=== PATIENT | female | born 1955 | race Caucasian/White ===

== ENCOUNTER 2023-05-26 15:27 | Inpatient (IN) ==
[2023-05-26] MEDS ORDERED: IOPAMIDOL 100 ML BOTTLE IV ONE (15:28)
[2023-05-26] MEDS: ASPIRIN 81 MG TAB.CHEW CHEWED ONE (16:07)
[2023-05-26 16:16] LABS: Basophils # (Auto) 0.03 K/mcL (0.00-0.30); Basophils % (Auto) 0.2 % (0.0-2.0); Eosinophils # (Auto) 0.02 K/mcL (0.00-0.70); Eosinophils % (Auto) 0.1 % (0.0-7.0); Hematocrit 39.6 % (34.1-44.9); Hemoglobin 13.1 g/dL (11.2-15.7); Lymphocytes # (Auto) 2.06 K/mcL (1.50-4.80); Lymphocytes % (Auto) 10.6 % (15.5-49.0); Mean Cell Volume 94.7 fL (80.0-100.0); Mean Corpuscular HGB Conc 33.1 g/dL (31.0-36.0); Mean Platelet Volume 9.3 fL (8.8-12.5); Monocytes # (Auto) 1.35 K/mcL (0.10-0.90); Neutrophils % (Auto) 81.9 % (38.0-78.0); Platelet Count 458 K/mcL (140-440); RBC 4.18 M/mcL (3.59-5.38); Red Cell Distribution Width 15.4 % (11.5-14.5); WBC 19.4 K/mcL (4.5-11.0)
[2023-05-26 16:36] LABS: ALT/SGPT 20 U/L (<40); AST/SGOT 30 U/L (<32); Albumin 4.5 gm/dL (3.2-5.2); Albumin/Globulin Ratio 1.1 (1.0-2.3); Alkaline Phosphatase 126 U/L (39-117); Bilirubin,Total 0.6 mg/dL (0.1-1.0); Blood Urea Nitrogen 11 mg/dL (8-23); Calcium 9.4 mg/dL (8.6-10.4); Carbon Dioxide 27 mmol/L (22-30); Chloride 96 mmol/L (96-108); Glomerular Filtration Rate 75; Glucose 106 mg/dL (70-105)
[2023-05-26] MEDS: cefTRIAXone 1 GM VIAL IV ONE (18:28)
[2023-05-26] MEDS: KETOROLAC 15 MG/ML VIAL IV ONE (18:28)
[2023-05-26] MEDS ORDERED: hydrALAZINE 20 MG/ML VIAL IV PRN (20:36)
[2023-05-26] MEDS: morphine 4 MG/ML VIAL IV PRN (20:47)
[2023-05-26] MEDS: LIDOCAINE 4% TOP PATCH TOPICAL SCH (20:50)
[2023-05-26] MEDS: SENNOSIDES 1 TABLET PO SCH (20:50)
[2023-05-26] MEDS: DOCUSATE SODIUM 100 MG CAPSULE PO SCH (20:50)
[2023-05-26] MEDS: 0.9 % SODIUM CHLORIDE 1,000 ML IV SCH (21:55)
[2023-05-26] MEDS: 0.9 % SODIUM CHLORIDE 10 ML SYRINGE IV SCH (21:57)
[2023-05-26] MEDS: AZITHROMYCIN 500 MG in DEXTROSE 5% IN WATER 250 ML IV SCH (22:05)
[2023-05-26] MEDS: ONDANSETRON 4 MG/2 ML VIAL IV PRN (22:45)
[2023-05-27] MEDS: traZODone HCL 50 MG TABLET PO PRN (00:17)
[2023-05-27] MEDS: ACETAMINOPHEN 325 MG TABLET PO PRN (00:17)
[2023-05-27] MEDS: guaiFENesin/DEXTROMETHORPHAN 5ML UD CUP PO PRN (00:20)
[2023-05-27 06:46] LABS: Basophils # (Auto) 0.02 K/mcL (0.00-0.30); Basophils % (Auto) 0.1 % (0.0-2.0); Eosinophils # (Auto) 0.15 K/mcL (0.00-0.70); Hematocrit 31.8 % (34.1-44.9); Hemoglobin 10.4 g/dL (11.2-15.7); Lymphocytes # (Auto) 1.35 K/mcL (1.50-4.80); Lymphocytes % (Auto) 9.3 % (15.5-49.0); Mean Cell Volume 95.5 fL (80.0-100.0); Mean Corpuscular HGB Conc 32.7 g/dL (31.0-36.0); Mean Platelet Volume 9.4 fL (8.8-12.5); Monocytes # (Auto) 1.35 K/mcL (0.10-0.90); Monocytes % (Auto) 9.3 % (1.0-12.0); Neutrophils % (Auto) 80.1 % (38.0-78.0); Platelet Count 363 K/mcL (140-440); RBC 3.33 M/mcL (3.59-5.38); Red Cell Distribution Width 15.5 % (11.5-14.5); WBC 14.5 K/mcL (4.5-11.0)
[2023-05-27 07:22] LABS: ALT/SGPT 10 U/L (<40); AST/SGOT 20 U/L (<32); Albumin 3.1 gm/dL (3.2-5.2); Albumin/Globulin Ratio 1.2 (1.0-2.3); Alkaline Phosphatase 88 U/L (39-117); Bilirubin,Total 0.4 mg/dL (0.1-1.0); Blood Urea Nitrogen 17 mg/dL (8-23); Calcium 8.2 mg/dL (8.6-10.4); Carbon Dioxide 26 mmol/L (22-30); Chloride 102 mmol/L (96-108); Globulin 2.6 gm/dL (2.2-3.7); Glomerular Filtration Rate 75; Glucose 89 mg/dL (70-105)
[2023-05-27] MEDS: ENOXAPARIN 30 MG/0.3 ML SYRINGE SQ SCH (08:03)
[2023-05-27] MEDS: cefTRIAXone 1 GM VIAL IV SCH (08:04)
[2023-05-27] MEDS ORDERED: ALBUTEROL SULFATE 60 PUFF INHALER INH PRN (12:27)
[2023-05-27] MEDS ORDERED: Triamcinolone Acetonide 0.1 % ointment TOPICAL PRN (12:38)
[2023-05-27] MEDS ORDERED: METOCLOPRAMIDE 10 MG/2 ML VIAL IV PRN (12:52)
[2023-05-27] MEDS: BACLOFEN 10 MG TABLET PO PRN (13:24)
[2023-05-27] MEDS: oxyCODONE/APAP 10/325MG TABLET PO PRN (13:24)
[2023-05-27] MEDS: METHOCARBAMOL 750 MG TABLET PO SCH (15:18)
[2023-05-28 05:36] LABS: Basophils # (Auto) 0.02 K/mcL (0.00-0.30); Basophils % (Auto) 0.2 % (0.0-2.0); Eosinophils # (Auto) 0.17 K/mcL (0.00-0.70); Eosinophils % (Auto) 2.1 % (0.0-7.0); Hematocrit 28.8 % (34.1-44.9); Hemoglobin 9.5 g/dL (11.2-15.7); Lymphocytes # (Auto) 1.48 K/mcL (1.50-4.80); Mean Cell Volume 96.3 fL (80.0-100.0); Mean Platelet Volume 8.8 fL (8.8-12.5); Monocytes # (Auto) 0.83 K/mcL (0.10-0.90); Monocytes % (Auto) 10.1 % (1.0-12.0); Neutrophils % (Auto) 69.4 % (38.0-78.0); Platelet Count 306 K/mcL (140-440); RBC 2.99 M/mcL (3.59-5.38); Red Cell Distribution Width 15.5 % (11.5-14.5); WBC 8.2 K/mcL (4.5-11.0)
[2023-05-28 05:59] LABS: ALT/SGPT 11 U/L (<40); AST/SGOT 19 U/L (<32); Albumin 2.9 gm/dL (3.2-5.2); Albumin/Globulin Ratio 1.1 (1.0-2.3); Alkaline Phosphatase 75 U/L (39-117); Bilirubin,Total 0.2 mg/dL (0.1-1.0); Blood Urea Nitrogen 10 mg/dL (8-23); Calcium 8.2 mg/dL (8.6-10.4); Carbon Dioxide 26 mmol/L (22-30); Chloride 104 mmol/L (96-108); Globulin 2.6 gm/dL (2.2-3.7); Glomerular Filtration Rate 99; Glucose 89 mg/dL (70-105)
[2023-05-28] MEDS: IPRATROPIUM/ALBUTEROL 3 ML AMPUL.NEB NEB PRN (06:34)
[2023-05-28] MEDS: PANTOPRAZOLE 40 MG TABLET PO SCH (07:14)
[2023-05-28] MEDS: LEVOTHYROXINE 75 MCG TABLET PO SCH (07:14)
[2023-05-28] MEDS: LEVOTHYROXINE 100 MCG TABLET PO SCH (07:14)
[2023-05-28] MEDS: FLUTICASONE PROPIONATE SPRAY.NAS NS SCH (08:22)
[2023-05-28] MEDS ORDERED: CYANOCOBALAMIN (VITAMIN B-12) 1,000 MCG TABLET PO SCH (09:00)
[2023-05-29] MEDS: LEVOTHYROXINE 100 MCG TABLET PO SCH (07:30)
[2023-05-29] MEDS: LEVOTHYROXINE 75 MCG TABLET PO SCH (07:31)
[2023-05-29 07:38] LABS: Basophils # (Auto) 0.03 K/mcL (0.00-0.30); Basophils % (Auto) 0.5 % (0.0-2.0); Eosinophils # (Auto) 0.23 K/mcL (0.00-0.70); Eosinophils % (Auto) 3.8 % (0.0-7.0); Hematocrit 29.4 % (34.1-44.9); Hemoglobin 9.7 g/dL (11.2-15.7); Lymphocytes # (Auto) 1.57 K/mcL (1.50-4.80); Mean Cell Volume 96.1 fL (80.0-100.0); Mean Platelet Volume 9.8 fL (8.8-12.5); Monocytes # (Auto) 0.75 K/mcL (0.10-0.90); Monocytes % (Auto) 12.4 % (1.0-12.0); Neutrophils % (Auto) 57.1 % (38.0-78.0); Platelet Count 347 K/mcL (140-440); RBC 3.06 M/mcL (3.59-5.38); Red Cell Distribution Width 15.3 % (11.5-14.5)
[2023-05-29 08:08] LABS: ALT/SGPT 11 U/L (<40); AST/SGOT 20 U/L (<32); Albumin 3.2 gm/dL (3.2-5.2); Bilirubin,Total < 0.2 mg/dL (0.1-1.0); Blood Urea Nitrogen 7 mg/dL (8-23); Calcium 8.5 mg/dL (8.6-10.4); Carbon Dioxide 29 mmol/L (22-30); Chloride 102 mmol/L (96-108); Globulin 2.7 gm/dL (2.2-3.7); Glucose 82 mg/dL (70-105)
[2023-05-29 08:09] LABS: Albumin/Globulin Ratio 1.2 (1.0-2.3); Alkaline Phosphatase 80 U/L (39-117); Glomerular Filtration Rate 99
[2023-05-29] MEDS ORDERED: LEVOTHYROXINE SODIUM 175 MCG TABLET PO SCH (09:00)
[2023-05-29] MEDS: ALPRAZolam 0.5 MG TABLET PO PRN (18:17)
[2023-05-30 05:47] LABS: Basophils # (Auto) 0.01 K/mcL (0.00-0.30); Basophils % (Auto) 0.2 % (0.0-2.0); Eosinophils # (Auto) 0.22 K/mcL (0.00-0.70); Eosinophils % (Auto) 4.1 % (0.0-7.0); Hematocrit 31.6 % (34.1-44.9); Hemoglobin 10.4 g/dL (11.2-15.7); Lymphocytes # (Auto) 1.41 K/mcL (1.50-4.80); Lymphocytes % (Auto) 26.3 % (15.5-49.0); Mean Cell Volume 95.2 fL (80.0-100.0); Mean Corpuscular HGB Conc 32.9 g/dL (31.0-36.0); Mean Platelet Volume 9.1 fL (8.8-12.5); Monocytes # (Auto) 0.67 K/mcL (0.10-0.90); Monocytes % (Auto) 12.5 % (1.0-12.0); Neutrophils % (Auto) 56.9 % (38.0-78.0); Platelet Count 381 K/mcL (140-440); RBC 3.32 M/mcL (3.59-5.38); WBC 5.4 K/mcL (4.5-11.0)
[2023-05-30 06:16] LABS: ALT/SGPT 10 U/L (<40); AST/SGOT 20 U/L (<32); Albumin 3.1 gm/dL (3.2-5.2); Albumin/Globulin Ratio 1.1 (1.0-2.3); Alkaline Phosphatase 81 U/L (39-117); Bilirubin,Total < 0.2 mg/dL (0.1-1.0); Blood Urea Nitrogen 8 mg/dL (8-23); Calcium 8.8 mg/dL (8.6-10.4); Carbon Dioxide 30 mmol/L (22-30); Chloride 103 mmol/L (96-108); Globulin 2.8 gm/dL (2.2-3.7); Glomerular Filtration Rate 99; Glucose 93 mg/dL (70-105)
[2023-05-30] MEDS: guaiFENesin 600 MG TAB.SR.12H PO SCH (08:22)
[2023-05-30] MEDS: BENZONATATE 100 MG CAPSULE PO SCH (08:22)
[2023-05-30] MEDS: FLEETS ADULT 1 DOSE ENEMA PR ONE (18:37)
[2023-05-30] MEDS: POLYETHYLENE GLYCOL 3350 17 GM PACKET PO PRN (18:37)
[2023-05-31 06:00] LABS: Basophils # (Auto) 0.03 K/mcL (0.00-0.30); Basophils % (Auto) 0.5 % (0.0-2.0); Eosinophils # (Auto) 0.27 K/mcL (0.00-0.70); Eosinophils % (Auto) 4.8 % (0.0-7.0); Hematocrit 31.5 % (34.1-44.9); Hemoglobin 10.2 g/dL (11.2-15.7); Lymphocytes # (Auto) 1.51 K/mcL (1.50-4.80); Mean Cell Volume 97.5 fL (80.0-100.0); Mean Corpuscular HGB Conc 32.4 g/dL (31.0-36.0); Mean Platelet Volume 9.2 fL (8.8-12.5); Monocytes # (Auto) 0.68 K/mcL (0.10-0.90); Monocytes % (Auto) 12.2 % (1.0-12.0); Neutrophils % (Auto) 55.5 % (38.0-78.0); Platelet Count 387 K/mcL (140-440); RBC 3.23 M/mcL (3.59-5.38); Red Cell Distribution Width 15.2 % (11.5-14.5); WBC 5.6 K/mcL (4.5-11.0)
[2023-05-31 06:32] LABS: ALT/SGPT 12 U/L (<40); AST/SGOT 21 U/L (<32); Albumin 3.2 gm/dL (3.2-5.2); Albumin/Globulin Ratio 1.2 (1.0-2.3); Alkaline Phosphatase 82 U/L (39-117); Bilirubin,Total < 0.2 mg/dL (0.1-1.0); Blood Urea Nitrogen 12 mg/dL (8-23); Calcium 8.6 mg/dL (8.6-10.4); Carbon Dioxide 29 mmol/L (22-30); Chloride 104 mmol/L (96-108); Globulin 2.6 gm/dL (2.2-3.7); Glomerular Filtration Rate 99; Glucose 90 mg/dL (70-105)
== END 2023-05-31 15:15 | disposition home or self-care (01) | DRG 193 ==
LOC: ED 15:27 → MEDSUR 20:23
PROVIDERS: ADMIT Internal Medicine; ATTEND Internal Medicine